=== PATIENT | male | born 1960 | race Caucasian/White ===

== ENCOUNTER 2021-09-11 10:04 | Emergency (ER) | payer SELFPAY ==
[2021-09-11] MEDS ORDERED: Adenosine 6 MG/2 ML SDV IVPUSH ONE ×2 (10:18)
[2021-09-11] MEDS ORDERED: Sodium Chloride 0.9% 10 ML Syringe FLUSH PRN (10:20)
[2021-09-11] MEDS ORDERED: Diltiazem 25 MG/5 ML SDV IVPUSH ONE (10:21)
[2021-09-11] MEDS ORDERED: Diltiazem 100 MG in Sodium Chloride 0.9% 100 ML IV SCH ×4 (11:00)
[2021-09-11 11:10] LABS: TROPONIN I HIGH SENSITIVITY 55.4 pg/mL (<=60.3)
[2021-09-11] MEDS ORDERED: Potassium Chloride 20 MEQ Tab.ER PO ONE (12:01)
== END 2021-09-11 13:25 | disposition left against medical advice (07) ==
LOC: JP.ED 10:04
DX: I48.91 Unspecified atrial fibrillation (principal); Z79.899 Other long term (current) drug therapy
CPT/HCPCS: 36415; 71045; 71045-26; 80053; 83605; 83735; 84443; 84484; 85025; 93005; 93010; 96365; 96366; 96375; 96376; 99283; 99285-25; A9270-GY; J0153; J3490